=== PATIENT | female | born 1990 | race Caucasian/White ===

== ENCOUNTER 2017-03-11 09:17 | Emergency (ER) | payer SELFPAY ==
[2017-03-11 10:38] LABS: BASOPHILS 0.1 % (0-2); EOSINOPHILS 0.1 % (0-7); HEMATOCRIT 54.8 % (36.0-48.0); HEMOGLOBIN 20.1 g/dL (12-16); IMMATURE GRANULOCYTES 0.5 % (0-5); LYMPHOCYTES 6.7 % (15-50); MCH 30.6 pg (26.0-34.0); MCHC 36.7 g/dL (31.0-37.0); MCV 83.4 fL (80.0-100.0); MEAN PLATELET VOLUME 9.7 fL (7.4-10.4); MONOCYTES 17.8 % (2-11); NEUTROPHILS 74.8 % (40-80); PLATELET COUNT 221 10x3/uL (130-400); RDW 13.2 % (11.5-14.5); WBC 9.9 10x3/uL (4.8-10.8)
[2017-03-11 10:48] LABS: RBC 6.57 10x6/uL (4.00-5.40)
[2017-03-11 11:09] LABS: ANION GAP 21.3 mmol/L (8-16); BILIRUBIN - TOTAL 0.63 mg/dL (0.2-1.3); CALCIUM 9.5 mg/dL (8.5-10.1); CREATININE - SERUM 2.2 mg/dL (0.6-1.3); POTASSIUM - SERUM 4.3 mmol/L (3.5-5.1); PROTEIN - SERUM 8.8 g/dL (6.4-8.2)
[2017-03-11 11:10] LABS: ALBUMIN 3.1 g/dL (3.4-5.0)
[2017-03-11 12:34] LABS: APPEARANCE CLEAR (CLEAR); BILIRUBIN NEGATIVE (NEGATIVE); COLOR STRAW (YELLOW); GLUCOSE NEGATIVE (NEGATIVE); KETONE SMALL mg/dL (NEGATIVE); NITRITE NEGATIVE (NEGATIVE); PROTEIN 1+ mg/dL (NEGATIVE); UROBILINOGEN NORMAL (NORMAL)
[2017-03-11 12:36] LABS: EPITHELIAL CELLS 0-5 /hpf (0-5); RED CELLS - URINE 0-5 /hpf (0-5); WHITE CELLS - URINE 0-5 /hpf (0-5)
[2017-03-11 12:37] LABS: BACTERIA FEW /hpf (NONE SEEN)
[2017-03-11 17:29] LABS: ALBUMIN 2.7 g/dL (3.4-5.0); ANION GAP 19.4 mmol/L (8-16); BILIRUBIN - TOTAL 0.54 mg/dL (0.2-1.3); CALCIUM 8.5 mg/dL (8.5-10.1); POTASSIUM - SERUM 4.4 mmol/L (3.5-5.1); PROTEIN - SERUM 7.6 g/dL (6.4-8.2)
[2017-03-11 17:30] LABS: CREATININE - SERUM 1.5 mg/dL (0.6-1.3)
== END 2017-03-11 19:26 | disposition home or self-care (01) ==
LOC: D.ER 09:17
PROVIDERS: Nurse Practitioner Family
DX: J10.1 Influenza due to other identified influenza virus with other respiratory manifestations (principal); E86.0 Dehydration; N28.9 Disorder of kidney and ureter, unspecified; R11.2 Nausea with vomiting, unspecified

== ENCOUNTER 2017-05-17 08:21 | Emergency (ER) | payer MEDICAID | END 2017-05-17 09:35 | disposition home or self-care (01) | LOC: D.ER 08:21 | DX: J20.9 Acute bronchitis, unspecified (principal); J45.909 Unspecified asthma, uncomplicated ==